=== PATIENT | male | born 1975 | race Caucasian/White ===

== ENCOUNTER → 2017-04-04 | Outpatient (CLI) | payer BC ==
--- NOTE | 2017-04-07 12:29 | SLEEP ---
DATE OF STUDY: 04/04/2017 ATTENDING PHYSICIAN: Dr. Javier Grimes. The patient is 41 years old who weighs 300 pounds with a BMI of 33. The patient's Davilla score was 2. Split night study was performed at [facility]. During the night study, the patient spent 447 minutes in bed and slept for 371 minutes with a sleep efficiency of 83%. Sleep latency was 9 minutes with a REM latency of 58 minutes. Overall, sleep architecture showed increased stage I sleep, normal stage II sleep, normal slow wave and increased REM sleep. During the initial diagnostic portion of the study, the patient slept for 146 minutes. During this time, there were 69 obstructive apneas, 4 mixed and no central apneas. There were 97 hypopneas. The patient's apnea-hypopnea index was 70 per hour, supine index 66 per hour with a REM index of 95 per hour. Review of nocturnal oximetry study revealed a mean oxygen saturation of 95% with the lowest of 75%. A 23% of time oxygen saturation remained between 80% and 89% and 3% of time between 70 and 79%. EKG monitoring revealed normal sinus rhythm, average heart rate was 65 beats per minute, no sustained arrhythmias were observed. PLMS were seen at index of 8 per hour and none caused EEG arousals. The patient met the criteria for CPAP initiation. It was started at 5 cm water and titrated up to 12 cm of water. At the final pressure, the patient slept for 45 minutes. During that time, there was supine as well as REM sleep seen. The patient's AHI was reduced to 0 per hour and oxygen saturation remained above 94%. The patient used medium size nasal mask. IMPRESSION: 1. Severe sleep apnea-hypopnea syndrome at an AHI of 70 per hour. 2. Nocturnal hypoxia secondary to obstructive sleep apnea, but resolved with CPAP. 3. Mild periodic limb movements of sleep without any EEG arousals. This does not need to be treated. RECOMMENDATIONS: 1. CPAP at 12 cm of water completely eliminated the patient's sleep apnea and should be used on a nightly basis. 2. Follow up in 4-6 weeks to assess compliance with CPAP and to document clinical improvement. 3. Weight loss is strongly advised. 4. Avoid [employer] depressants. 5. Cautioned regarding driving until symptoms of sleep apnea resolve with the use of CPAP. HORTENCIA BEJARANO MD DR: YVROSE/jesusita JOB#: [id number] / [id number] Dr. Javier Naranjo
== END | disposition home or self-care (01) ==
LOC: SLPLAB 18:43
PROVIDERS: ATTEND Physician Assistant Medical
DX: G47.33 Obstructive sleep apnea (adult) (pediatric) (principal); R06.83 Snoring
CPT/HCPCS: 95810